=== PATIENT | male | born 1960 | race Caucasian/White ===

== ENCOUNTER 2017-06-26 09:08 | Observation (INO) | payer BC ==
[~2017-06-26] VITALS: Ht 185.4 cm; Wt 100.0 kg
[~2017-06-26 09:08] MED LIST: (None)3.5 GM OP; ALAVERT10 MG PO; AMOXICILLIN500 MG PO; ASPIRIN LOW81 M1 PO; BACTRIM DS1 TAB PO; CEPHALEXIN500 MG PO; COENZYME Q-10200 MG PO; FEXOFENADINE180 MG PO; GENTAMICIN15 ML/BTL OP; HYDROCHLORO25 MG/TAB PO; K-DUR/KLOR-CON20 MEQ PO; LIPITOR20 M1 PO; LISINOPRIL10 MG PO; LORATADINE10 M1 PO; LORTAB 10-325 M1 TAB PO; LORTAB 7.5-3251 TAB PO; PLAVIX75 MG PO; PROTONIX40 M2 PO; SERTRALINE HCL25 MG PO; SERTRALINE25 MG PO; SUCRALFATE1 GM/10 ML PO; ZOFRAN ODT8 MG PO; [UNRECOGNIZED DRUG - OTHER] PO
--- NOTE | 2017-06-26 09:18 | NUR ---
WC TO ER ROOM 10, TO BED, MONITORS X 3
[2017-06-26] MEDS ORDERED: CARAFATE1 GM PO ×2 (09:25→12:05)
[2017-06-26] MEDS ORDERED: PANTOPRAZOLE SO40 MG PO (09:25)
--- NOTE | 2017-06-26 10:00 | NUR ---
MEDICATED WITH SECOND DOSE OF 0.4 MG OF SL NITRO, MORPHINE ON HOLD AT THIS TIME PER MD VERBAL ORDER. PATIENT RESTLESS IN BED AT THIS TIME. AT MEDSIDE. WILL CONTINUE TO MONITOR.
--- NOTE | 2017-06-26 10:44 | NUR ---
PATIENT REPORTS PAIN LEVEL 5/10. REQUESTING ICE CHIPS. VERBAL APPROVAL TO GIVE ICE CHIPS.
[2017-06-26 11:27] LABS: URINE BILIRUBIN - DIPSTICK NEGATIVE (NEGATIVE); URINE BLOOD DIPSTICK SMALL (NEGATIVE); URINE COLOR YELLOW; URINE GLUCOSE - DIPSTICK NEGATIVE (NEGATIVE); URINE KETONE TRACE mg/dL (NEGATIVE); URINE LEUK ESTERASE NEGATIVE (NEGATIVE); URINE NITRITE - DIPSTICK NEGATIVE (Negative); URINE PH 6.5 (4.5-8.0); URINE PROTEIN - DIPSTICK 100 mg/dL (NEG-TRACE); URINE SPECIFIC GRAVITY 1.025; URINE UROBILINOGEN - DIPSTICK 0.2 E.U./dL (0.2)
[2017-06-26 11:37] LABS: BARBITURATES NEGATIVE (NEGATIVE); COCAINE NEGATIVE (NEGATIVE); METHADONE NEGATIVE (NEGATIVE); OXCYCODONE NEGATIVE (NEGATIVE); TETRAHYDROCANNABIONOL POSITIVE (NEGATIVE); TRICYLIC ANTIDEPRESSANTS NEGATIVE (NEGATIVE)
--- NOTE | 2017-06-26 11:40 | NUR ---
PATIENT RESTING ON STRETCHER NO DISTRESS NOTE. REPORTS PAIN LEVEL 4/10 AT THIS TIME. DENIES ANY NAUSEA, NO VOMITING NOTED. WILL CONTINUE TO MONITOR.
[2017-06-26 11:41] LABS: URINE CLARITY OTHER
[2017-06-26 11:53] LABS: URINE BACTERIA RARE hpf; URINE SQUAMOUS EPITHELIAL CELL RARE EPI/hpf (0-FEW)
--- NOTE | 2017-06-26 12:00 | NUR ---
MD AT BEDSIDE TO DISCUSS RESULTS.
--- NOTE | 2017-06-26 12:17 | NUR ---
CM received a call from the ED to review the case for possible admission. CM reviewed same and found scant lab work, no CBC or Full Chemistry profile, only Toxicology and UA with Lipase for chemistry results. FILIPE then called the ED back and spoke with R.T. and advised Observation at this time d/t lack of CBC and Chemistry profile. FILIPE was advised a call is out to Dr. Soto for consult as the patient is one of his. R.T. stated he will speak with the physician about lab orders should admission be imminent. CM voiced agreement.
--- NOTE | 2017-06-26 12:40 | NUR ---
sbar printed to floor
--- NOTE | 2017-06-26 13:25 | NUR ---
PATIENT REPORTS PAIN LEVEL 2/10 AT THIS TIME.
[2017-06-26 13:30] LABS: IMMATURE GRANULOCYTES 0.7 % (0.0-1.0); MEAN CORPUSCULAR HGB 31.4 pG CALC (26.0-32.0); NEUT# 11.93 thou/uL (1.82-7.42); RED BLOOD COUNT 5.67 mill/uL (4.70-6.10); RED CELL DISTRI WIDTH 13.6 % (11.5-15.5)
[2017-06-26 13:31] LABS: HEMATOCRIT 52.4 % (39.0-50.0); HEMOGLOBIN 17.8 g/dl (14.0-18.0); MEAN CELL VOLUME 92.4 fL CALC (80.0-100.0)
[2017-06-26 13:37] LABS: ALBUMIN 5.2 g/dL (3.2-5.0); ALKALINE PHOSPHATASE 102 u/l (38-126); ANION GAP 27 (6-22 (CALC)); BILIRUBIN, TOTAL 0.8 mg/dL (0.0-1.4); BUN 17 mg/dL (9-20); BUN/CREATININE RATIO 17 (12-20 (CALC)); CARBON DIOXIDE 20 mmol/l (22-30); CHLORIDE 102 mmol/l (95-108); GFR > 60 ML/MIN (>=60 (CALC)); GFR FOR AFR.AMER. > 60 ML/MIN (>=60 (CALC)); POTASSIUM 3.5 mmol/l (3.5-5.1); SGOT/AST 52 u/l (17-59); SGPT/ALT 25 u/l (21-72); SODIUM 145 mmol/l (137-146); TOTAL PROTEIN 9.6 g/dL (6.3-8.2)
--- NOTE | 2017-06-26 14:31 | NUR ---
REPORT GIVEN TO ELLY NICOLE.
--- NOTE | 2017-06-26 14:40 | NUR ---
PATIENT TRANSPORTED TO [facility] VIA WHEELCHAIR. ACCOMPANIED BY . BEDSIDE REPORT GIVEN TO ELLY NICOLE. CARE RELINQUISHED.
--- NOTE | 2017-06-26 15:00 | NUR ---
PT ARRIVES TO ROOM BY WHEELCHAIR FROM ER. PT IS AMBULATORY, AWAKE AND ALERT. AT BEDSIDE. PT MEDICATED FOR PAIN RECENTLY, IS NOT IN DISCOMFORT NOW.
[2017-06-26 16:00] VITALS: BP 140/86
--- NOTE | 2017-06-26 16:30 | NUR ---
PT HAD SIGNIFICANT PAIN AFTER PREVIOUS MED WORE OFF, SEEN VERY UNCOMFORTABLE UNTIL PAIN MED PROVIDED.
[2017-06-26 19:30] VITALS: BP 140/90
--- NOTE | 2017-06-26 19:30 | NUR ---
PT SITTING UP IN BED. PT IN EXTREMEM PAIN WILL GO INTO POSITION. PT MEDICATED WITH MORPHINE AND MAGIC MOUTHWASH. PT IS ALERT AND ORIENTED X3. PERRLA. RESP ARE EVEN AND UNLABORED. NO DISTRESS NOTED. LUNGS ARE CLEAR. HR REGULAR. PULSES PALPABLE THROUGHOUT. NO EDEMA NOTED. BS ACTIVE. PT STATES THAT HE HAD A BM YESTERDAY. #20 RFA WITH NS @125CC/HR INFUSING. NO REDNESS OR EDEMA NOTED. WILL CONTINUE TO MONTOR. CALL LIGHT WITHIN REACH
--- NOTE | 2017-06-27 00:30 | NUR ---
PT RESTING IN BED WITH COMPLAINTS OF ABDMINAL PAIN. MEDICATED WITH MORPHINE 2MG IV AND MAGIC MOUTHWASH. WILL CONTINUE TO MONITOR
--- NOTE | 2017-06-27 01:15 | NUR ---
PT WITH COMPLAINTS OF NAUSEA AND VOMITTING. ZOFRAN IV ORDER OBTAINED.
--- NOTE | 2017-06-27 02:00 | NUR ---
PT MEDICATED WITH ZOFRAN 4MG IV FOR N/V
--- NOTE | 2017-06-27 04:00 | NUR ---
PT RESTING BED WITH EYES CLOSED. RESP ARE EVEN AND UNLABORED. NO DISTRESS NOTED. WILL CONTINUE TO MONITOR
--- NOTE | 2017-06-27 04:33 | NUR ---
PT NOW WITH COMPLAINTS OF PAIN. PT IN POSITION IN BED. PT MEDICATED WITH MORPHINE 2MG IV AND MAGIC MOUTHWASH PO
[2017-06-27 05:32] VITALS: BP 170/100
[2017-06-27 06:38] LABS: MEAN CELL VOLUME 92.8 fL CALC (80.0-100.0); MEAN CORPUSCULAR HGB 31.4 pG CALC (26.0-32.0); MEAN CORPUSCULAR HGB CONC 33.8 g/L CALC (32.0-36.0); RED BLOOD COUNT 4.97 mill/uL (4.70-6.10); RED CELL DISTRI WIDTH 13.4 % (11.5-15.5)
[2017-06-27 06:42] LABS: ANION GAP 16 (6-22 (CALC)); BUN 17 mg/dL (9-20); BUN/CREATININE RATIO 17 (12-20 (CALC)); CHLORIDE 103 mmol/l (95-108); GFR > 60 ML/MIN (>=60 (CALC)); GFR FOR AFR.AMER. > 60 ML/MIN (>=60 (CALC)); HEMATOCRIT 46.1 % (39.0-50.0); HEMOGLOBIN 15.6 g/dl (14.0-18.0); POTASSIUM 4.2 mmol/l (3.5-5.1); SODIUM 142 mmol/l (137-146)
[2017-06-27 06:46] LABS: CARBON DIOXIDE 27 mmol/l (22-30)
[2017-06-27 07:40] VITALS: BP 117/85
--- NOTE | 2017-06-27 07:40 | NUR ---
ASSESSMENT IS COMPLETED: IV SITE IS FREE FROM REDNESS OR EDEMA. C/O NAUSEA AND PAIN IN THE EPIGASTRIC AREA. INFORMED NOT DUE FOR PAIN MEDICATIONS AT THIS TIME. GAVE ZOFRAN FOR NAUSEA. HR IS REG,PULSES ARE STRONG X4,ABD IS SOFT WITH ACTIVE BS.
--- NOTE | 2017-06-27 12:30 | NUR ---
PT IS RELAXING IN BED WITH NO DISTRESS NOTED. IV SITE IS FREE FROM REDNESS OR EDEMA. CONTINUE TO OBSERVE AND MONITOR.,
[2017-06-27 16:00] VITALS: BP 112/64
--- NOTE | 2017-06-27 16:05 | NUR ---
PT REMAINS TO RELAX WITH NO DISTRESS NOTED. IV SITE IS FREE FROM REDNESS OR EDEMA.
--- NOTE | 2017-06-27 19:20 | NUR ---
PT STATES HE IS HAVING PAIN 10/10. PT IN POSITION IN BED. PT MEDICATED FOR PAIN WITH MORPHINE/NEERAJ COCKTAIL/ZOFRAN.
--- NOTE | 2017-06-27 19:45 | NUR ---
PT SITTING UP IN BED WATCHING TV. PT STATES THAT THE PAIN IS BETTER. DISCUSSED WITH PATIENT ABOUT LORTAB AND TRYING THAT NEXT INSTEAD OF MORPHINE. PT AGREED AND STATES THAT HE IS SUPPOSE TO GO HOME TOMORROW. PT IS ALERT AND ORIENTED X3. PERRLA. RESP ARE EVEN AND UNLABORD. NO DISTRESS NOTED. LUNGS ARE CLEAR. HR REGULAR. PULSES PALPABLE THROUGHOUT. NO EDEMA NOTED. BS HYPOACTIVE. #20 RFA WITH NS @125CC/HR INFUSING. NO REDNESS OR EDEMA NOTED. WILL CONTINUE TO MONITOR. CALL LIGHT IN REACH.
[2017-06-27 20:35] VITALS: BP 109/59
--- NOTE | 2017-06-27 20:50 | NUR ---
MEDICATED PT WITH LORTAB TO TRANSITION FROM MORPHINE. WILL CONTINUE TO MONITOR.
--- NOTE | 2017-06-28 | NUR ---
PT RESTING IN BED WITH EYES CLOSED. AT THIS TIME. RESP EVEN AND UNLABORED. NO DISTRESS NOTED. WILL CONTINUE TO MONITOR
[2017-06-28 00:21] VITALS: BP 117/61
--- NOTE | 2017-06-28 00:57 | NUR ---
PT VOMITTED 1ST LORTAB. MEDICATED WITH MAGIC MOUTHWASH AND ZOFRAN THEN GAVE ANOTHER DOSE OF LORTAB
--- NOTE | 2017-06-28 04:11 | NUR ---
PT RESTING IN BED WITH EYES CLOSED. RESP ARE EVEN AND UNLABORED. NO DISTRESS NOTED. WILL CONTINUE TO MONTIOR
[2017-06-28 04:31] VITALS: BP 162/89
[2017-06-28 07:50] VITALS: BP 127/84
--- NOTE | 2017-06-28 07:50 | NUR ---
ASSESSMENT IS COMPLETED: IV SITE IS FREE FROM REDNESS OR EDEMA. HR IS REG,PULSES ARE STRONG X4,ABD IS SOFT WITH ACTIVE BS, CONTINUE TO OSBERVE AND MONITOR,.
[2017-06-28 11:30] VITALS: BP 127/84
--- NOTE | 2017-06-28 12:17 | NUR ---
PT IS RELAXING IN BED WITH NO DISTRESS NOTED. IV SITE IS FREE FROM REDNESS OR EDEMA.
[2017-06-28] MEDS ORDERED: LIDOCAINE21 PO (12:21)
[2017-06-28] MEDS ORDERED: ZOFRAN ODT4 MG PO (12:22)
[2017-06-28] MEDS ORDERED: LORTAB 7.57.5 MG PO (12:24)
--- NOTE | 2017-06-28 13:25 | NUR ---
PT'S IV SITE DISCONTINUED, CATHETER INTACT, DISCHARGE INSTRUCTIONS GIVEN AND FAMILY IN THE ROOM. Discharge instructions given. Patient verbalizes understanding of same. Discharged in stable condition via Wheelchair to Home with family. All belongings sent with pt.
== END 2017-06-28 14:14 | disposition home or self-care (01) | DRG 392 ==
LOC: ED 09:08 → ED-I 12:32 → ED 12:44 → MS2 12:45
PROVIDERS: Emergency Medicine; ADMIT Internal Medicine; ATTEND Internal Medicine
DX: K22.4 Dyskinesia of esophagus (principal); F11.90 Opioid use, unspecified, uncomplicated; F12.90 Cannabis use, unspecified, uncomplicated; I10 Essential (primary) hypertension; K21.9 Gastro-esophageal reflux disease without esophagitis; Z87.891 Personal history of nicotine dependence
CPT/HCPCS: G0378; S0164

== ENCOUNTER 2017-07-14 03:30 | Emergency (ER) | payer BC ==
[~2017-07-14] VITALS: Ht 185.4 cm; Wt 90.9 kg
[~2017-07-14 03:30] MED LIST changes: +CARAFATE1 GM PO; +LIDOCAINE21 PO; +LORTAB 7.57.5 MG PO; +PANTOPRAZOLE SO40 MG PO; +ZOFRAN ODT4 MG PO
[2017-07-14 04:16] LABS: HEMATOCRIT 47.3 % (39.0-50.0); HEMOGLOBIN 16.7 g/dl (14.0-18.0); IMMATURE GRANULOCYTES 0.5 % (0.0-1.0); MEAN CELL VOLUME 87.9 fL CALC (80.0-100.0); MEAN CORPUSCULAR HGB CONC 35.3 g/L CALC (32.0-36.0); NEUT# 6.93 thou/uL (1.82-7.42); RED BLOOD COUNT 5.38 mill/uL (4.70-6.10); RED CELL DISTRI WIDTH 13.1 % (11.5-15.5)
[2017-07-14 04:29] LABS: ALBUMIN 4.6 g/dL (3.2-5.0); ALKALINE PHOSPHATASE 92 u/l (38-126); AMYLASE 62 u/l (30-110); ANION GAP 23 (6-22 (CALC)); BILIRUBIN, TOTAL 1.1 mg/dL (0.0-1.4); BUN 17 mg/dL (9-20); BUN/CREATININE RATIO 17 (12-20 (CALC)); CARBON DIOXIDE 20 mmol/l (22-30); CHLORIDE 104 mmol/l (95-108); CREATININE 1.1 mg/dL (0.7-1.3); GFR > 60 ML/MIN (>=60 (CALC)); GFR FOR AFR.AMER. > 60 ML/MIN (>=60 (CALC)); LIPASE 62 u/l (23-300); POTASSIUM 3.3 mmol/l (3.5-5.1); SGOT/AST 30 u/l (17-59); SGPT/ALT 21 u/l (21-72); SODIUM 144 mmol/l (137-146); TOTAL PROTEIN 8.5 g/dL (6.3-8.2)
[2017-07-14] MEDS ORDERED: PHENERGAN25 M1 PR (05:09)
[2017-07-14 05:35] VITALS: BP 110/74
== END 2017-07-14 05:38 | disposition home or self-care (01) | DRG 392 ==
LOC: ED 03:30
PROVIDERS: Family Medicine
DX: K22.4 Dyskinesia of esophagus (principal); K21.9 Gastro-esophageal reflux disease without esophagitis; R11.10 Vomiting, unspecified; I10 Essential (primary) hypertension

== ENCOUNTER 2017-09-19 17:09 | Inpatient (IN) | payer BC ==
[~2017-09-19] VITALS: Ht 185.4 cm; Wt 86.3 kg
[2017-09-19] VITALS (8 sets, daily range): BP systolic 112–203; BP diastolic 79–104
[~2017-09-19 17:09] MED LIST changes: +PHENERGAN25 M1 PR
--- NOTE | 2017-09-19 17:10 | NUR ---
PT DIRECTLY TO ROOM VIA WHEELCHAIR. MD AT BEDSIDE.
[2017-09-19 17:37] LABS: HEMATOCRIT 48.6 % (39.0-50.0); IMMATURE GRANULOCYTES 0.4 % (0.0-1.0); MEAN CELL VOLUME 88.5 fL CALC (80.0-100.0); NEUT# 10.29 thou/uL (1.82-7.42); RED BLOOD COUNT 5.49 mill/uL (4.70-6.10); RED CELL DISTRI WIDTH 13.8 % (11.5-15.5)
[2017-09-19] MEDS ORDERED: DICYCLOMINE10 MG PO (17:37)
[2017-09-19 17:47] LABS: ANION GAP 22 (6-22 (CALC)); BUN 16 mg/dL (9-20); BUN/CREATININE RATIO 17 (12-20 (CALC)); CARBON DIOXIDE 21 mmol/l (22-30); CHLORIDE 103 mmol/l (95-108); CREATININE 0.9 mg/dL (0.7-1.3); GFR > 60 ML/MIN (>=60 (CALC)); GFR FOR AFR.AMER. > 60 ML/MIN (>=60 (CALC)); POTASSIUM 3.4 mmol/l (3.5-5.1); SODIUM 142 mmol/l (137-146)
[2017-09-19 18:17] LABS: BARBITURATES NEGATIVE (NEGATIVE); COCAINE NEGATIVE (NEGATIVE); METHADONE NEGATIVE (NEGATIVE); OXCYCODONE NEGATIVE (NEGATIVE); TETRAHYDROCANNABIONOL POSITIVE (NEGATIVE); TRICYLIC ANTIDEPRESSANTS NEGATIVE (NEGATIVE)
--- NOTE | 2017-09-19 18:52 | NUR ---
PT FLAILING ON STRETCHER, COMFORT MEASURES ATTEMPTED, PT STATES LITTLE DECREASE IN PAIN, SYNCOPAL EPISODES HAVE DECREASED.
--- NOTE | 2017-09-19 18:54 | NUR ---
NITRO DRIP INITIATED. PT RESTING ON STRETCHER. AT BEDSIDE
--- NOTE | 2017-09-19 19:13 | NUR ---
NITRO INFUSING AT 5 MGC. PT C/O TIGHTNESS. CM SINUS LIZ WITH MULTIFOCAL PVS'S. NITRO INCREASED TO 10 MCG. PT IS ALERT ORIENTED/MICAH. GRASP =. ALVARADO. GCS 14. LUNGS CLEAR. HR NORMAL. NO EDEMA.
--- NOTE | 2017-09-19 19:22 | NUR ---
PT HAVING RUNS OF UNIFOCAL VENTRICULAR BEATS...LIZ. DR. FAN NOTIFIED. PT FEELS FINE.
--- NOTE | 2017-09-19 20:19 | NUR ---
PT RESTING. NAD. NO PAIN. PT CONTINUES TO HAVE RUNS OF VENTRICULAR...LIZ RHYTHM. AWARE. WARM COMPRESS TO POTASSIUM INFUSING SITE.
--- NOTE | 2017-09-19 20:36 | NUR ---
MICHELLER PRINTED TO FLOOR
--- NOTE | 2017-09-19 20:43 | NUR ---
RESCUE BOAT OPERATOR NOTIFIED TO GET THE MAG OX. WAS JUST AT BEDSIDE TO DISCUSS ADMISSION.
--- NOTE | 2017-09-19 21:10 | NUR ---
REPORT TO JANET/ICU. PT HAD AN EPISODE OF [place] FOLLOWED BY SPITTING UP A SCANT AMT OF FLUID. IV K+ SLOWED TO 25 HOUR DO TO IRRITATION AT INFUSION SITE. PT DENIES CHEST PRESSURE/PAIN AT THIS TIME.
--- NOTE | 2017-09-19 21:15 | NUR ---
TO FLOOR WITH IVS/O2/MONITOR. TO ICU. AT BEDSIDE. PT C/O ESOPHAGEAL SPASMS.
--- NOTE | 2017-09-19 21:30 | NUR ---
PT TO ICU BED 4. PT AMBULATED TO BED FROM STRETCHER WITH MINIMAL ASSISTANCE. PT CRYING OUT IN PAIN. PT FLAILING IN BED. ASKED PT TO REMAIN STILL POSSIBLE SO THAT VS COULD BE OBTAINED. ARTIFACT ON MONITOR. PT IS ALERT AND ORIENTED X3. PERRLA. ADMISSION ASSESSMENT COMPLETED AT THIS TIME. HISTORY OBTAINED FROM AFTER OBTAINING VERBAL PERMISSION FROM PT TO SPEAK WITH . FREQ PVS NOTED ON MONITOR. O2 2L NC IN PLACE. HTN NOTED WELL. WILL CONTINUE TO ASSESS POST MEDICATION FOR PAIN. PT MAIN COMPLAINT OF PAIN IS THE EPIGASTRIC AREA. IVS PATENT AT THIS TIME. ORIENTED TO UNIT AND CALL LIGHT SYSTEM. PT AND SPOUSE VERBALIZED UNDERSTANDING. CALL LIGHT IN REACH. WILL CONTINUE TO CLOSELY MONITOR.
--- NOTE | 2017-09-19 22:16 | NUR ---
DR MANNING NOTIFIED OF VENTRICULAR LIZ ON MONITOR AND BP AND BIGEMINY.
--- NOTE | 2017-09-19 22:28 | NUR ---
CODE GIVEN TO WELL DIRECT LINE TO ICU.
--- NOTE | 2017-09-19 22:38 | NUR ---
LAB INTO DRAW TROPONIN
--- NOTE | 2017-09-19 22:38 | NUR ---
POTASSIUM IV COMPLETED AT THIS TIME. IV PATENT AND FLUSHED. NO REDNESS OR EDEMA NOTED. PT RESTING IN BED WITH EYES CLOSED. CALL LIGHT IN REACH. WILL CONTINUE TO MONITOR
[2017-09-20] VITALS (42 sets, daily range): BP systolic 86–184; BP diastolic 44–104
--- NOTE | 2017-09-20 | NUR ---
HYDRALAZINE 10MG IV PUSH GIVEN FOR BP 203/94. NITRO PASTE PLACED TO LEFT CHEST ORDERED BY . VS SET TO CONTINUE Q15 MINS. PT REMAINS IN BIGEMINY. FREQ PVCS NOTED. QUESTIONED PT TO HISTORY OF IRREGULAR HR. PT STATES THAT HE KNOWS HE WAS TOLD HE HAD AN IRREGULAR RATE A CHILD AND STILL HAS THE AAA. WILL CONTINUE TO CLOSELY MONITOR. CALL LIGHT IN REACH.
--- NOTE | 2017-09-20 00:16 | NUR ---
PT ASSISTED TO BSC TO VOID. PT STATES HE WAS UNABLE TO VOID IN BED IN URINAL. PT VOIDED 200CC OF DARK YELLOW CLOEAR URINE. PT ASSISTED BACK TO BED. PT REMAINS HTN AT THIS TIME. PT REMAINS IN BIGEMINY. CALL LIGHT IN REACH. WILL CONTINUE TO MONITOR
--- NOTE | 2017-09-20 02:00 | NUR ---
NITRO PASTE REMOVED. BP 89/67. HR 50. PT DENIES CP AT THIS TIME. PT REQUESTING PAIN MEDICATION. CALL LIGHT IN REACH. WILL CONTINUE TO MONITOR
--- NOTE | 2017-09-20 02:20 | NUR ---
PT MEDICATED WITH MORPHINE PER MD ORDERS. BP NOW 153/93. HR 60S. PT ASSISTED TO BSC TO VOID. PT VOIDED 100CC OF DARK YELLOW URINE. PT ASSISTED BACK TO BED. CALL LIGHT IN REACH. WILL CONTINUE TO MONITOR
--- NOTE | 2017-09-20 02:34 | NUR ---
LAB INTO DRAW TROPONIN.
--- NOTE | 2017-09-20 04:00 | NUR ---
PT RESTING IN BED WITH EYES CLOSED. REMAINS BIGEMINY ON MONITOR. CALL LIGHT IN REACH. WILL CONTINUE TO MONITOR
--- NOTE | 2017-09-20 05:00 | NUR ---
PT STATES THAT HE IS FEELING BETTER AT THIS TIME. HOWEVER IS STILL HAVING THE EPIGASTRIC PAIN. MEDICATED WITH LORTAB PER MD ORDERS. CALL LIGHT IN REACH. WILL CONTINUE TO MONITOR
--- NOTE | 2017-09-20 06:05 | NUR ---
LAB INTO DRAW TROPONIN
[2017-09-20 06:24] LABS: HEMATOCRIT 44.2 % (39.0-50.0); HEMOGLOBIN 15.2 g/dl (14.0-18.0); MEAN CORPUSCULAR HGB CONC 34.4 g/L CALC (32.0-36.0); RED BLOOD COUNT 4.91 mill/uL (4.70-6.10); RED CELL DISTRI WIDTH 14.1 % (11.5-15.5)
[2017-09-20 06:35] LABS: ALBUMIN 3.9 g/dL (3.2-5.0); ALKALINE PHOSPHATASE 66 u/l (38-126); ANION GAP 13 (6-22 (CALC)); BILIRUBIN, TOTAL 0.8 mg/dL (0.0-1.4); BUN 16 mg/dL (9-20); BUN/CREATININE RATIO 21 (12-20 (CALC)); CARBON DIOXIDE 22 mmol/l (22-30); CHLORIDE 107 mmol/l (95-108); CREATININE 0.8 mg/dL (0.7-1.3); GFR > 60 ML/MIN (>=60 (CALC)); GFR FOR AFR.AMER. > 60 ML/MIN (>=60 (CALC)); POTASSIUM 3.8 mmol/l (3.5-5.1); SGOT/AST 21 u/l (17-59); SGPT/ALT 26 u/l (21-72); SODIUM 139 mmol/l (137-146); TOTAL PROTEIN 7.3 g/dL (6.3-8.2)
--- NOTE | 2017-09-20 06:35 | NUR ---
PT MEDICATED WITH MORPHINE PER MD ORDERS FOR EPIGASTRIC PAIN. PT REMAINS IN BIGEMINY ON MONITOR. CALL LIGHT IN REACH. WILL CONTINUE TO MONTIOR
--- NOTE | 2017-09-20 07:30 | NUR ---
PT LAYING IN BED RESTING WITH EYES CLOSED, AROUSES EASILY TO VERBAL STIMULI, PT A & O X3, PERRL, AFEBRILE, HR 64, RESP. 18, BP 138/93, O2 98% ON RA, LUNG SOUNDS CLEAR IN ALL NORMAN, 18G LAC IV, SALINE LOCKED, TWIN CATH LF, NS INFUSING AT PRESCRIBED RATE, NO REDNESS OR DRAINAGE AT IV SITES, ACTIVE BOWEL SOUNDS, STRONG RADIAL & PEDAL PULSES, AM ASSESSMENT COMPLETE, SEE INTERVENTIONS, SAFETY MEASURES REINFORCED, CALL MOISE WITHIN REACH
--- NOTE | 2017-09-20 08:01 | NUR ---
Dr Doe present at bedside to assess pt; order received for Leonardo loza to be changed q3 days; pt offers no complaints; sr on monitor; o2 per nc; call light within reach; will continue to monitor
--- NOTE | 2017-09-20 09:00 | NUR ---
PT ASSISTED TO THE BSC AND BACK TO BED, PT AMBULATED WITH A SLOW STEADY GAIT, TOLERATED WELL, CALL MOISE WITHIN REACH
--- NOTE | 2017-09-20 09:15 | NUR ---
DR MANNING AT BEDSIDE DISCUSSING PLAN OF CARE
--- NOTE | 2017-09-20 09:15 | NUR ---
Dr Franco at bedside to assess pt and discuss plan of care; Unna boot removed per MD request request and reapplied; redness continues; am meds explained and administered; made aware of no bm since admission; pt educated on need for transfer; Cherelle called per this real estate underwriter as per pt request; updated family on plan of care/transfer; call light within reach; will continue to monitor
--- NOTE | 2017-09-20 10:18 | NUR ---
PT RESTING WITH EYES CLOSED, NO S/S OF DISTRESS, CALL MOISE WITHIN REACH
--- NOTE | 2017-09-20 11:30 | NUR ---
SETUP ASSISTANCE PROVIDED WITH LUNCH TRAY
--- NOTE | 2017-09-20 11:55 | NUR ---
PT REFUSED LUNCH
--- NOTE | 2017-09-20 13:20 | NUR ---
PT ASSISTED TO THE BSC AND BACK TO BED, PT TOLERATED WELL, REMINDED TO CALL FOR ASSISTACE, CALL MOISE WITHIN REACH
--- NOTE | 2017-09-20 15:35 | NUR ---
PT LAYING IN BED RESTING WITH GUYS CLOSED, AROUSES EASILY TO VERBAL STIMULI, VERBALIZES NO COMPLAINTS, CALL MOISE WITHIN REACH
--- NOTE | 2017-09-20 16:52 | NUR ---
PT ASSISTED TO THE BSC AND BACK TO BED, PT AMBULATED WITH A SLOW STEADY GAIT, TOLERATED WELL, CALL MOISE WITHIN REACH
--- NOTE | 2017-09-20 19:30 | NUR ---
PT RESTING IN BED WATCHING TV. SPOUSE IN ROOM. PT IS ALERT AND ORIENTED X3. PERRLA. SHIFT ASSESSMENT COMPLETED AT THIS TIME. PLAN OF CARE DISCUSSED WITH PT AND SPOUSE AT THIS TIME. IV PATENT. REMAINS IRREGULAR ON MONITOR. CALL LIGHT IN REACH. WILL CONTINUE TO MONITOR
--- NOTE | 2017-09-20 22:00 | NUR ---
PT RESTING IN BED WATCHING TV. RESP ARE EVEN AND UNLABORED. NO DISTRESS NOTED. CALL LIGHT IN REACH. WILL CONTINUE TOMONITR
[2017-09-21] VITALS (16 sets, daily range): BP systolic 96–152; BP diastolic 52–88
--- NOTE | 2017-09-21 | NUR ---
PT RESTING IN BED WATCHING TV. RESP ARE EVEN AND UNLABORED. NO DISTRESS NOTED. IV PATENT. CALL LIGHT IN REACH. WILL CONTINUE TO MONITOR.
--- NOTE | 2017-09-21 02:00 | NUR ---
PT RESTING IN BED WITH EYES CLOSED. RESP ARE EVEN AND UNLABORED. NO DSITRESS NOTED. CALL LIGHT IN REACH. WILL CONTINUE TO MONITOR
--- NOTE | 2017-09-21 04:00 | NUR ---
LAB INTO DRAW AM LABS. PT TOLERATED WELL.
[2017-09-21 05:08] LABS: HEMATOCRIT 42.1 % (39.0-50.0); HEMOGLOBIN 13.9 g/dl (14.0-18.0); MEAN CELL VOLUME 93.1 fL CALC (80.0-100.0); MEAN CORPUSCULAR HGB 30.8 pG CALC (26.0-32.0); RED BLOOD COUNT 4.52 mill/uL (4.70-6.10); RED CELL DISTRI WIDTH 14.1 % (11.5-15.5)
[2017-09-21 05:16] LABS: ANION GAP 11 (6-22 (CALC)); BUN 15 mg/dL (9-20); BUN/CREATININE RATIO 19 (12-20 (CALC)); CARBON DIOXIDE 24 mmol/l (22-30); CHLORIDE 106 mmol/l (95-108); CREATININE 0.8 mg/dL (0.7-1.3); GFR > 60 ML/MIN (>=60 (CALC)); GFR FOR AFR.AMER. > 60 ML/MIN (>=60 (CALC)); POTASSIUM 3.8 mmol/l (3.5-5.1); SODIUM 137 mmol/l (137-146)
--- NOTE | 2017-09-21 05:44 | NUR ---
PT RESTING IN BED AWAKE WATCHING TV. PT STATES THAT HE IS FEELING MUCH BETTER THIS MONRING. CALL LIGHT IN REACH. WILL CONTINUE TO MONITOR
--- NOTE | 2017-09-21 07:05 | NUR ---
PT LAYING IN BED RESTING WITH EYES CLOSED, AROUSES EASILY TO VERBAL STIMULI, PT A & O X3, PERRL, AFEBRILE, HR 46, RESP. 18, BP 125/88, O2 95% ON RA, LUNG SOUNDS CLEAR IN ALL NORMAN, PT VERBALIZES HE IS HAVING SOME EPIGASTRIC PAIN, PT MEDICATED FOR THIS AT THIS TIME, PT DENIES ANY CHEST PAIN, 18G LAC IV, SALINE LOCKED, TWIN CATH LFA, NS INFUSING AT PRESCRIBED RATE, NO REDNESS OR DRAINAGE AT EITHER SITE, STRONG RADIAL AND PEDAL PULSES, ACTIVE BOWEL SOUNDS, AM ASSESSMENT COMPLETE, SEE INTERVENTIONS, SAFETY MEASURES REINFORCED, CALL MOISE WITHIN REACH
--- NOTE | 2017-09-21 07:30 | NUR ---
SETUP ASSISTANCE PROVIDED WITH TYRELL HATCH
--- NOTE | 2017-09-21 08:20 | NUR ---
PT UP TO THE BSC & BACK TO BED, AMBULATED WITH A SLOW STEADY GAIT, CALL MOISE WITHIN REACH
--- NOTE | 2017-09-21 08:44 | NUR ---
PT'S AT BEDSIDE
--- NOTE | 2017-09-21 10:52 | NUR ---
DR MANNING AND Pedro AGUIRRE AT BEDSIDE DISCUSSING PLAN OF CARE
--- NOTE | 2017-09-21 11:15 | NUR ---
OFFERED TO SETUP PT TO GET WASHED UP, PT REFUSED AT THIS TIME
--- NOTE | 2017-09-21 11:35 | NUR ---
SETUP ASSISTANCE PROVIDED WITH LUNCH TRAY
--- NOTE | 2017-09-21 12:05 | NUR ---
PT SITTING UP IN THE BED WATCHING TV, TOLERATED LUNCH WELL, VERBALIZES NO COMPLAINTS, CALL MOISE WITHIN REACH
--- NOTE | 2017-09-21 14:26 | NUR ---
PT LAYING IN BED RESTING WITH EYES CLOSED, AROUSES EASILY TO VERBAL STIMULI, NO S/S OF DISTRESS, CALL MOISE WITHIN REACH
--- NOTE | 2017-09-21 15:22 | NUR ---
PT UP TO THE BSC, PT AMBULATED WITH A SLOW STEADY GAIT, CALL MOISE WITHIN REACH
--- NOTE | 2017-09-21 17:25 | NUR ---
SETUP ASSISTANCE PROVIDED WITH PM MEAL
--- NOTE | 2017-09-21 18:03 | NUR ---
PT UP TO THE BSC, TOLERATING WELL, CALL MOISE WITHIN REACH
--- NOTE | 2017-09-21 19:30 | NUR ---
PT RESTING IN BED AWAKE WATCHING TV. PT IS ALERT AND ORIENTED X3. PERRLA. SHIFT ASSESSMENT COMPLETED AT THIS TIME. IV PATENT. REMAINS SB ON MONITOR. PLAN OF CARE REIVEWED WITH PT AND SPOUSE IN ROOM. BOTH VERBALIZED UNDERSTANDING. CALL LIGHT IN REACH. WILL CONTINUE TO MONITOR
--- NOTE | 2017-09-21 22:00 | NUR ---
PT RESTING IN BED WATCHING TV. RESP ARE EVEN AND UNLABORED. NO DISTRESS NOTED. CALL LIGHT IN REACH. WILL CONTINUE TO MONOTIR
[2017-09-22] VITALS: BP 109/72
--- NOTE | 2017-09-22 00:20 | NUR ---
PT RESTING IN BED WITH EYES CLOSED. RESP ARE EVEN AND UNLABORED. NO DISTRESS NOTED. IV PATENT. CALL LIGHT IN REACH. WILL CONTINUE TO MONITOR
[2017-09-22 02:00] VITALS: BP 108/73
--- NOTE | 2017-09-22 02:00 | NUR ---
PT RESTING IN BED WITH EYES CLOSED. RESP ARE EVEN AND UNLABORED. NO DISTRESS NOTED. CALL LIGHT IN REACH. WILL CONTINUE TO MONITOR.
[2017-09-22 04:00] VITALS: BP 108/61
--- NOTE | 2017-09-22 04:22 | NUR ---
PT RESTING IN BED WITH EYES CLOSED. RESP ARE EVEN AND UNLABORED. NO DISTRESS NOTED. CALL LIGHT IN REACH. WILL CONTINUE TO MONIOR
--- NOTE | 2017-09-22 05:51 | NUR ---
PT RESTING IN BED WITH EYES CLOSED. RESP ARE EVEN AND UNLABORED. NO DISTRESS NOTED. CALL LIGHT IN REACH. WILL CONTINUE TO MONOTOR
[2017-09-22 06:03] VITALS: BP 155/80
--- NOTE | 2017-09-22 07:32 | NUR ---
PT SEEN AWAKE, ALERT, ORIENTED X 3. ASSESSMENT NEGATIVE, STATES THAT HE FEELS WELL, HOPES TO GO HOME TODAY. LUNGS CLEAR, ABDOMEN BENIGN, SB 40s. PT STATES THAT HE ATE A MEAL YESTERDAY FOR FIRST TIME SINCE HOSPITALIZATION.
[2017-09-22 08:19] VITALS: BP 135/76
[2017-09-22] MEDS ORDERED: DICYCLOMINE20 MG PO (09:01)
[2017-09-22] MEDS ORDERED: LORTAB 7.57.5 MG PO (09:01)
[2017-09-22 09:12] VITALS: BP 135/76
--- NOTE | 2017-09-22 09:40 | NUR ---
TWIN CATH REMOVED FROM LFA, CATH TIP INTACT, PRESSURE DRESSING APPLIED
--- NOTE | 2017-09-22 09:45 | NUR ---
DR MANNING HAS BEEN IN TO SEE PT, DISCHARGED TO HOME WHEN ARRIVES. MONITORS REMOVED, WAITING IN ROOM.
--- NOTE | 2017-09-22 10:14 | NUR ---
PT LEAVES AMBULATORY, CONDITION STABLE, THANKS STAFF HE LEAVES WITH HIS .
== END 2017-09-22 10:10 | disposition home or self-care (01) | DRG 392 ==
LOC: ED 17:09 → ED-I 20:00 → ED 20:36 → ICU 20:37
PROVIDERS: Family Medicine; ADMIT Internal Medicine; ATTEND Internal Medicine
DX: K22.4 Dyskinesia of esophagus (principal); E87.6 Hypokalemia; K20.9 Esophagitis, unspecified; I25.10 Atherosclerotic heart disease of native coronary artery without angina pectoris; I10 Essential (primary) hypertension; K21.9 Gastro-esophageal reflux disease without esophagitis; R00.1 Bradycardia, unspecified; I49.3 Ventricular premature depolarization; G89.29 Other chronic pain; R00.8 Other abnormalities of heart beat; Z95.828 Presence of other vascular implants and grafts; Z87.891 Personal history of nicotine dependence; Z79.02 Long term (current) use of antithrombotics/antiplatelets
CPT/HCPCS: Q9967

== ENCOUNTER 2018-05-03 13:31 | Emergency (ER) | payer BC ==
[~2018-05-03] VITALS: Ht 185.4 cm; Wt 85.0 kg
[~2018-05-03 13:31] MED LIST changes: +DICYCLOMINE10 MG PO; +DICYCLOMINE20 MG PO
[2018-05-03 13:59] LABS: HEMATOCRIT 49.4 % (39.0-50.0); HEMOGLOBIN 17.1 g/dl (14.0-18.0); IMMATURE GRANULOCYTES 0.5 % (0.0-5.0); MEAN CELL VOLUME 85.9 fL CALC (80.0-100.0); MEAN CORPUSCULAR HGB 29.7 pG CALC (26.0-32.0); MEAN CORPUSCULAR HGB CONC 34.6 g/L CALC (32.0-36.0); NEUT# 9.35 thou/uL (1.82-7.42); RED BLOOD COUNT 5.75 mill/uL (4.70-6.10); RED CELL DISTRI WIDTH 13.9 % (11.5-15.5)
[2018-05-03 14:11] LABS: ALKALINE PHOSPHATASE 83 u/l (38-126); ANION GAP 20 (6-22 (CALC)); BILIRUBIN, TOTAL 1.1 mg/dL (0.0-1.4); BUN 18 mg/dL (9-20); BUN/CREATININE RATIO 17 (12-20 (CALC)); CARBON DIOXIDE 22 mmol/l (22-30); CHLORIDE 102 mmol/l (95-108); GFR > 60 ML/MIN (>=60 (CALC)); GFR FOR AFR.AMER. > 60 ML/MIN (>=60 (CALC)); LIPASE 62 u/l (23-300); POTASSIUM 3.6 mmol/l (3.5-5.1); SGOT/AST 35 u/l (17-59); SODIUM 140 mmol/l (137-146)
[2018-05-03 14:15] LABS: ALBUMIN 5.3 g/dL (3.2-5.0); TOTAL PROTEIN 9.9 g/dL (6.3-8.2)
[2018-05-03] MEDS ORDERED: PHENERGAN25 MG RE (15:24)
[2018-05-03] MEDS ORDERED: ZOFRAN ODT4 MG PO (15:24)
[2018-05-03 16:04] VITALS: BP 168/102
== END 2018-05-03 16:10 | disposition home or self-care (01) | DRG 392 ==
LOC: ED 13:31
PROVIDERS: Family Medicine
DX: K22.4 Dyskinesia of esophagus (principal); K21.9 Gastro-esophageal reflux disease without esophagitis; I10 Essential (primary) hypertension

== ENCOUNTER 2019-01-31 00:17 | Emergency (ER) | payer BC ==
[~2019-01-31] VITALS: Ht 185.4 cm; Wt 80.0 kg
[~2019-01-31 00:17] MED LIST changes: +PHENERGAN25 MG RE
[2019-01-31 01:09] LABS: IMMATURE GRANULOCYTES 0.3 % (0.0-5.0); MEAN CELL VOLUME 86.3 fL CALC (80.0-100.0); MEAN CORPUSCULAR HGB 29.7 pG CALC (26.0-32.0); MEAN CORPUSCULAR HGB CONC 34.4 g/L CALC (32.0-36.0); NEUT# 8.26 thou/uL (1.82-7.42); RED BLOOD COUNT 4.88 mill/uL (4.70-6.10)
[2019-01-31 01:11] LABS: HEMATOCRIT 42.1 % (39.0-50.0); HEMOGLOBIN 14.5 g/dl (14.0-18.0)
[2019-01-31 01:22] LABS: ALBUMIN 4.5 g/dL (3.2-5.0); ALKALINE PHOSPHATASE 83 u/l (38-126); AMYLASE 55 u/l (30-110); ANION GAP 13 (6-22 (CALC)); BUN 15 mg/dL (9-20); BUN/CREATININE RATIO 16 (12-20 (CALC)); CARBON DIOXIDE 24 mmol/l (22-30); CHLORIDE 106 mmol/l (95-108); GFR > 60 ML/MIN (>=60 (CALC)); GFR FOR AFR.AMER. > 60 ML/MIN (>=60 (CALC)); LIPASE 77 u/l (23-300); POTASSIUM 3.4 mmol/l (3.5-5.1); SGOT/AST 23 u/l (17-59); SODIUM 140 mmol/l (137-146)
[2019-01-31 01:27] LABS: BILIRUBIN, TOTAL 0.6 mg/dL (0.0-1.4)
[2019-01-31 01:34] LABS: MYOGLOBIN 81 ng/mL (0 - 121)
[2019-01-31 02:27] LABS: URINE BILIRUBIN - DIPSTICK NEGATIVE (NEGATIVE); URINE BLOOD DIPSTICK NEGATIVE (NEGATIVE); URINE COLOR YELLOW; URINE GLUCOSE - DIPSTICK NEGATIVE (NEGATIVE); URINE KETONE 15 mg/dL (NEGATIVE); URINE LEUK ESTERASE NEGATIVE (NEGATIVE); URINE NITRITE - DIPSTICK NEGATIVE (Negative); URINE PH 8.5 (4.5-8.0); URINE PROTEIN - DIPSTICK NEGATIVE (NEG-TRACE); URINE UROBILINOGEN - DIPSTICK 0.2 E.U./dL (0.2)
[2019-01-31] MEDS ORDERED: ZOFRAN4 M1 PO (03:04)
[2019-01-31 03:56] VITALS: BP 156/67
== END 2019-01-31 03:56 | disposition home or self-care (01) | DRG 392 ==
LOC: ED 00:17
PROVIDERS: Emergency Medicine
DX: R11.10 Vomiting, unspecified (principal); K22.4 Dyskinesia of esophagus; I10 Essential (primary) hypertension
CPT/HCPCS: Q9967; S0164

== ENCOUNTER 2020-11-18 14:40 | Emergency (ER) | payer OTHER ==
[~2020-11-18 14:40] MED LIST changes: +ZOFRAN4 M1 PO
[2020-11-18 15:15] LABS: GFR > 60 ML/MIN (>=60 (CALC)); GFR FOR AFR.AMER. > 60 ML/MIN (>=60 (CALC)); HEMOGLOBIN 13.5 g/dl (14.0-18.0); IMMATURE GRANULOCYTES 0.1 % (0.0-5.0); MEAN CELL VOLUME 88.7 fL CALC (80.0-100.0); MEAN CORPUSCULAR HGB 29.9 pG CALC (26.0-32.0); MEAN CORPUSCULAR HGB CONC 33.8 g/dL CAL (32.0-36.0); NEUT# 12.58 thou/uL (1.82-7.42); RED BLOOD COUNT 4.51 mill/uL (4.70-6.10); RED CELL DISTRI WIDTH 13.2 % (11.5-15.5)
[2020-11-18 15:28] LABS: ALBUMIN 4.3 g/dL (3.2-5.0); ALKALINE PHOSPHATASE 79 u/l (38-126); ANION GAP 16 (6-22 (CALC)); BILIRUBIN, TOTAL 0.6 mg/dL (0.0-1.4); BUN 10 mg/dL (9-20); BUN/CREATININE RATIO 12 (12-20 (CALC)); CARBON DIOXIDE 21 mmol/l (22-30); CHLORIDE 104 mmol/l (95-108); CREATININE 0.8 mg/dL (0.7-1.3); GFR > 60 ML/MIN (>=60 (CALC)); GFR FOR AFR.AMER. > 60 ML/MIN (>=60 (CALC)); LIPASE 27 u/l (23-300); POTASSIUM 3.5 mmol/l (3.5-5.1); SGOT/AST 28 u/l (17-59); SODIUM 138 mmol/l (137-146); TOTAL PROTEIN 7.6 g/dL (6.3-8.2)
[2020-11-18 17:04] VITALS: BP 148/83
== END 2020-11-18 17:24 | disposition left against medical advice (07) | DRG 313 ==
LOC: ED 14:40
PROVIDERS: Family Medicine
DX: R07.9 Chest pain, unspecified (principal); I10 Essential (primary) hypertension; K22.9 Disease of esophagus, unspecified; K21.9 Gastro-esophageal reflux disease without esophagitis; Z95.828 Presence of other vascular implants and grafts; Z91.19 Patient's noncompliance with other medical treatment and regimen
CPT/HCPCS: Q9967

== ENCOUNTER 2021-10-03 04:47 | Emergency (ER) | payer OTHER ==
[2021-10-03] VITALS (14 sets, daily range): BP systolic 69–142; BP diastolic 43–96
[~2021-10-03] VITALS: Ht 185.4 cm; Wt 78.0 kg
[2021-10-03 05:27] LABS: HEMATOCRIT 40.4 % (39.0-50.0); HEMOGLOBIN 13.4 g/dl (14.0-18.0); IMMATURE GRANULOCYTES 0.9 % (0.0-5.0); MEAN CELL VOLUME 90.4 fL CALC (80.0-100.0); MEAN CORPUSCULAR HGB CONC 33.2 g/dL CAL (32.0-36.0); NEUT# 16.73 thou/uL (1.82-7.42); RED BLOOD COUNT 4.47 mill/uL (4.70-6.10); RED CELL DISTRI WIDTH 13.3 % (11.5-15.5)
[2021-10-03] MEDS ORDERED: ASPIRIN 81 LOW81 MG (05:28)
[2021-10-03 05:29] LABS: GFR FOR AFR.AMER. > 60 ML/MIN (>=60 (CALC)); GFR OTHER RACES > 60 ML/MIN (>=60 (CALC))
[2021-10-03 05:45] LABS: ALBUMIN 3.9 g/dL (3.2-5.0); ALKALINE PHOSPHATASE 66 u/l (38-126); AMYLASE 55 u/l (30-110); ANION GAP 14 (6-22 (CALC)); BILIRUBIN, TOTAL 0.6 mg/dL (0.0-1.4); BUN 11 mg/dL (9-20); BUN/CREATININE RATIO 12 (12-20 (CALC)); CARBON DIOXIDE 23 mmol/l (22-30); CHLORIDE 105 mmol/l (95-108); CREATININE 0.9 mg/dL (0.7-1.3); GFR FOR AFR.AMER. > 60 ML/MIN (>=60 (CALC)); GFR OTHER RACES > 60 ML/MIN (>=60 (CALC)); LIPASE 44 u/l (23-300); POTASSIUM 3.8 mmol/l (3.5-5.1); SGOT/AST 20 u/l (17-59); SODIUM 138 mmol/l (137-146); TOTAL PROTEIN 6.9 g/dL (6.3-8.2)
[2021-10-03 05:47] LABS: INTERNATIONAL NORMALIZED RATIO 1.1 RATIO (0.7-1.3); PROTHROMBIN TIME 11.1 SECONDS (9.0-12.5)
== END 2021-10-03 07:53 | disposition short-term general hospital (02) | DRG 379 ==
LOC: ED 04:47
PROVIDERS: Family Medicine
PROC: 30233N1 Transfusion of Nonautologous Red Blood Cells into Peripheral Vein, Percutaneous Approach (ICD-10-PCS; principal; 2021-10-03)
PROC: 30233N1 Transfusion of Nonautologous Red Blood Cells into Peripheral Vein, Percutaneous Approach (ICD-10-PCS; 2021-10-03)
PROC: 06HY33Z Insertion of Infusion Device into Lower Vein, Percutaneous Approach (ICD-10-PCS; 2021-10-03)
DX: K92.0 Hematemesis (principal); I10 Essential (primary) hypertension; K21.9 Gastro-esophageal reflux disease without esophagitis; I71.4 Abdominal aortic aneurysm, without rupture; Z95.828 Presence of other vascular implants and grafts; Z79.02 Long term (current) use of antithrombotics/antiplatelets; Z79.82 Long term (current) use of aspirin; Z20.822 Contact with and (suspected) exposure to COVID-19
CPT/HCPCS: P9016; Q9967; S0164

== ENCOUNTER 2024-07-02 08:19 | Observation (INO) | payer OTHER ==
[2024-07-02] VITALS (20 sets, daily range): BP systolic 113–156; BP diastolic 83–120
[~2024-07-02] VITALS: Ht 185.4 cm; Wt 91.0 kg
[~2024-07-02 08:19] MED LIST changes: +ASPIRIN 81 LOW81 MG
[2024-07-02] MEDS ORDERED: ATORVASTATIN CA20 MG PO (08:28)
[2024-07-02] MEDS ORDERED: dilTIAZem HCL 50 MG/10 ML SDV IV ONE ×3 (08:50→12:40)
[2024-07-02 09:00] LABS: BASO% 0.6 % (0-3); EOS% 3.7 % (0-8); IMMATURE GRANULOCYTES 0.1 % (0.0-5.0); LYMPH% 24.5 % (15-41); MEAN CELL VOLUME 91.4 fL CALC (80.0-100.0); MEAN CORPUSCULAR HGB 30.3 pG CALC (26.0-32.0); MEAN CORPUSCULAR HGB CONC 33.1 g/dL CAL (32.0-36.0); MONO% 8.8 % (2-13); NEUT# 6.7 thou/uL (1.82-7.42); NEUT% 62.3 % (42-76); RED BLOOD COUNT 5.12 mill/uL (4.70-6.10); RED CELL DISTRI WIDTH 14.4 % (11.5-15.5)
[2024-07-02 09:12] LABS: ALBUMIN 4.1 g/dL (3.2-5.0); BILIRUBIN, TOTAL 0.8 mg/dL (0.2-1.3); TOTAL PROTEIN 7.4 g/dL (6.3-8.2)
[2024-07-02 09:19] LABS: HEMATOCRIT 46.8 % (39.0-50.0); HEMOGLOBIN 15.5 g/dl (14.0-18.0)
[2024-07-02] MEDS ORDERED: FUROSEMIDE 40 MG/4 ML SDV IV ONE (09:25)
[2024-07-02] MEDS ORDERED: APIXABAN BASE 5 MG TAB PO ONE (12:40)
[2024-07-02] MEDS ORDERED: dilTIAZem HCL 30 MG/TAB PO ONE (12:40)
[2024-07-02] MEDS ORDERED: METOPROLOL TARTRATE 50 MG/TAB PO SCH (15:30)
[2024-07-02] MEDS ORDERED: ACETAMINOPHEN 325 MG/TAB PO PRN (16:10)
[2024-07-02] MEDS ORDERED: Zaleplon 5 MG/CAP PO PRN (16:10)
[2024-07-02] MEDS ORDERED: MAGNESIUM HYDROXIDE 30 ML UDC PO PRN (16:10)
[2024-07-02] MEDS ORDERED: ATORVASTATIN CALCIUM 20 MG/TAB PO SCH (21:00)
[2024-07-02] MEDS ORDERED: APIXABAN BASE 5 MG TAB PO SCH (21:00)
[2024-07-03] VITALS (9 sets, daily range): BP systolic 95–131; BP diastolic 52–107
[2024-07-03 05:50] LABS: CHOLESTEROL HDL RATIO 4.2 (<4.4 (CALC)); MAGNESIUM 1.9 mg/dL (1.6-2.3)
[2024-07-03] MEDS ORDERED: CLOPIDOGREL BISULFATE 75 MG/TAB TAB PO SCH (09:00)
[2024-07-03] MEDS ORDERED: IPRATROPIUM-Albuterol 0.5MG-2.5MG/3 ML IN PRN (10:00)
[2024-07-04 00:01] VITALS: BP 99/75
[2024-07-04 04:29] VITALS: BP 91/70
[2024-07-04 05:18] LABS: BASO% 0.8 % (0-3); EOS% 4.2 % (0-8); HEMATOCRIT 51.9 % (39.0-50.0); HEMOGLOBIN 17.2 g/dl (14.0-18.0); IMMATURE GRANULOCYTES 0.3 % (0.0-5.0); LYMPH% 32.8 % (15-41); MEAN CORPUSCULAR HGB 30.5 pG CALC (26.0-32.0); MEAN CORPUSCULAR HGB CONC 33.1 g/dL CAL (32.0-36.0); MONO% 10.6 % (2-13); NEUT# 5.2 thou/uL (1.82-7.42); NEUT% 51.3 % (42-76); RED BLOOD COUNT 5.64 mill/uL (4.70-6.10); RED CELL DISTRI WIDTH 14.5 % (11.5-15.5)
[2024-07-04 05:32] LABS: ALBUMIN 4.2 g/dL (3.2-5.0); BILIRUBIN, TOTAL 1.3 mg/dL (0.2-1.3); CREATININE 1.2 mg/dL (0.7-1.3); MAGNESIUM 1.9 mg/dL (1.6-2.3); POTASSIUM 4.1 mmol/l (3.5-5.1); TOTAL PROTEIN 7.6 g/dL (6.3-8.2)
[2024-07-04 05:42] VITALS: BP 108/69
[2024-07-04 10:49] VITALS: BP 98/61
[2024-07-04 14:48] VITALS: BP 108/81
[2024-07-04 18:41] VITALS: BP 115/81
[2024-07-05 00:02] VITALS: BP 95/70
[2024-07-05 03:14] VITALS: BP 138/81
[2024-07-05 05:11] LABS: BASO% 0.9 % (0-3); EOS% 4.9 % (0-8); HEMATOCRIT 52.7 % (39.0-50.0); HEMOGLOBIN 17.5 g/dl (14.0-18.0); IMMATURE GRANULOCYTES 0.2 % (0.0-5.0); LYMPH% 33.8 % (15-41); MEAN CELL VOLUME 92.1 fL CALC (80.0-100.0); MEAN CORPUSCULAR HGB 30.6 pG CALC (26.0-32.0); MEAN CORPUSCULAR HGB CONC 33.2 g/dL CAL (32.0-36.0); MONO% 9.9 % (2-13); NEUT# 5.49 thou/uL (1.82-7.42); NEUT% 50.3 % (42-76); RED BLOOD COUNT 5.72 mill/uL (4.70-6.10); RED CELL DISTRI WIDTH 14.4 % (11.5-15.5)
[2024-07-05 05:23] VITALS: BP 106/82
[2024-07-05 05:48] LABS: ALBUMIN 4.3 g/dL (3.2-5.0); BILIRUBIN, TOTAL 1.2 mg/dL (0.2-1.3); CREATININE 1.2 mg/dL (0.7-1.3); POTASSIUM 4.1 mmol/l (3.5-5.1); TOTAL PROTEIN 7.7 g/dL (6.3-8.2)
[2024-07-05 09:27] VITALS: BP 122/103
[2024-07-05] MEDS ORDERED: METOPROLOL TAR100 MG PO (12:29)
[2024-07-05] MEDS ORDERED: ELIQUIS5 MG PO (12:29)
== END 2024-07-05 12:52 | disposition home or self-care (01) | DRG 310 ==
LOC: ED 08:19 → ED-I 12:00 → ED 13:08 → MS2 13:09
PROVIDERS: Family Medicine; Internal Medicine; ADMIT Internal Medicine; ATTEND Internal Medicine
DX: I48.91 Unspecified atrial fibrillation (principal); R06.00 Dyspnea, unspecified; I10 Essential (primary) hypertension; I25.10 Atherosclerotic heart disease of native coronary artery without angina pectoris; I71.20 Thoracic aortic aneurysm, without rupture, unspecified; K21.9 Gastro-esophageal reflux disease without esophagitis; Z95.5 Presence of coronary angioplasty implant and graft; Z87.891 Personal history of nicotine dependence
CPT/HCPCS: G0378; J1940; Q9967